=== PATIENT | male | born 1985 | race African-American/Black ===

== ENCOUNTER 2019-02-11 19:17 | Emergency (ER) | payer OTHER ==
[~2019-02-11] VITALS: Ht 170.2 cm; Wt 59.0 kg
[2019-02-11 19:31] VITALS: BP 163/93
[2019-02-11] MEDS ORDERED: AZITHROMYCIN 2250 MG PO (19:32)
[2019-02-11] MEDS ORDERED: SUPRAX400 M1 PO (19:32)
[2019-02-11 19:49] LABS: URINE BILIRUBIN NEGATIVE (Negative); URINE BLOOD NEGATIVE (Negative); URINE CLARITY CLEAR; URINE COLOR YELLOW; URINE GLUCOSE-RANDOM NEGATIVE (Negative); URINE KETONES TRACE (Negative); URINE LEUKOCYTES-REFLEX NEGATIVE (Negative); URINE NITRITE-REFLEX NEGATIVE (Negative); URINE PROTEIN NEGATIVE (Negative)
== END 2019-02-11 19:50 | disposition home or self-care (01) ==
LOC: M.ERS 19:17
PROVIDERS: Family Medicine
DX: A64 Unspecified sexually transmitted disease (principal)